=== PATIENT | female | born 1970 | race American Indian/Alaskan Native ===

== ENCOUNTER 2020-04-21 10:03 | Outpatient (CLI) | payer OTHER ==
[~2020-04-21 10:03] MED LIST: ATIVAN2 M1; EFFEXOR XR150 MG; EFFEXOR XR75 MG; HYZAAR 50-12.51 EACH; PAZEO2.5 ML; RESTORIL30 M1; SEROQUEL300 MG; SYNTHROID125 MCG; ZYRTEC10 M3
== END 2020-04-21 10:08 | disposition home or self-care (01) ==
LOC: NUCLEAR 10:03
PROVIDERS: ATTEND Internal Medicine Sports Medicine
DX: M81.0 Age-related osteoporosis without current pathological fracture (principal)

== ENCOUNTER 2022-04-07 13:23 | Outpatient (CLI) | payer OTHER | END 2022-04-07 13:25 | disposition home or self-care (01) | LOC: NUCLEAR 13:23 | PROVIDERS: ATTEND Internal Medicine Sports Medicine | DX: M85.80 Other specified disorders of bone density and structure, unspecified site (principal) ==

== ENCOUNTER 2024-04-24 10:09 | Outpatient (CLI) | payer OTHER | END 2024-04-24 10:10 | disposition home or self-care (01) | LOC: NUCLEAR 10:09 | PROVIDERS: ATTEND Internal Medicine Sports Medicine | DX: M81.0 Age-related osteoporosis without current pathological fracture (principal) ==